=== PATIENT | male | born 1990 | race Caucasian/White ===

== ENCOUNTER → 2023-12-27 07:02 | Outpatient (CLI) | payer OTHER, SELFPAY ==
--- NOTE | 2023-12-27 07:05 | DI.MRI.S_ITS ---
PROCEDURE: MR LUMBAR SPINE WO CON INDICATIONS: Low back pain, unspecified TECHNIQUE: Noncontrast sagittal T1 spin echo and T2 fast echo, sagittal STIR, and T2 fast spin echo through the lumbar spine. In cases with scoliosis, additional coronal T2 fast spin echo may be performed. COMPARISON: None. FINDINGS: Image quality: Excellent. Alignment and Curvature: There is normal bony alignment. Bone Marrow: Marrow is of normal overall signal. No acute vertebral body compression fractures. Spinal Cord: Conus medullaris terminates at the L1 level. Visualized cord demonstrates normal signal and size. Paraspinous Soft Tissues: No paravertebral masses. T12-L1: Normal appearance. L1-L2: There is a high signal extruded disc fragment presumably emanating from L1-L2 superiorly located in the right lateral recess behind the L1 vertebral body and also in the right foramen. The protruded disc fragment measures approximately 2.5 x 0.7 x 1.1 cm. It impinges on multiple right-sided nerve root structures and obliterates the right L1 in both the right lateral recess and also in the foramen. The high signal suggests acuity and potential hemorrhage within the disc fragment. Reference sagittal T2 image 7 of series 2 and axial T2 images 7 through 9 of series 5. There is mild canal stenosis at the level of the disc. L2-L3: Disc bulge. No canal stenosis or foraminal stenosis. L3-L4: Disc bulge. Mild facet hypertrophy. Borderline canal stenosis. No significant foraminal stenosis. L4-L5: Disc bulge. Facet hypertrophy. Mild canal stenosis. [id number] bilateral foraminal stenosis. L5-S1: Annulus tear plus mild broad-based right paracentral disc protrusion. There is mild impingement on the right S1 nerve root in the right lateral recess. Reference T2 sagittal image 8 of series 2 and T2 axial image 33 of series 5. IMPRESSION: 1. There is a large high signal extruded disc fragment sitting predominantly in the right lateral recess behind L1, likely emanating from L1-L2, with extension into the right L1-L2 foramen. This is likely an acute disc fragment based on signal. It impinges on multiple right-sided nerve root structures and obliterates the right L1 nerve root in the lateral recess and foramen. 2. Mild canal stenosis at L4-L5 3. Annulus tear plus mild broad-based right paracentral disc protrusion at L5-S1 with mild impingement on the right S1 nerve root in the right lateral recess. Recommend correlation for presence or absence of right S1 radiculopathy. Dictated by: Mitchell Horowitz M.D. on 12/27/2023 at 8:23 Approved by: Mitchell Horowitz M.D. on 12/27/2023 at 8:40
== END ==
PROVIDERS: Referring Provider Nurse Practitioner Family; Visit Provider Nurse Practitioner Family
DX: M51.26 Other intervertebral disc displacement, lumbar region (principal); M51.27 Other intervertebral disc displacement, lumbosacral region; M51.37 Other intervertebral disc degeneration, lumbosacral region; M48.061 Spinal stenosis, lumbar region without neurogenic claudication
CPT/HCPCS: 72148